=== PATIENT | male | born 1975 | race Caucasian/White ===

== ENCOUNTER 2017-12-27 12:00 | Emergency (ER) | payer BC ==
[2017-12-27 12:18] VITALS: BP 139/85; PULSE 103; RESP 20; TEMP 98.8
--- NOTE | 2017-12-27 13:38 | ED ---
Skin/Abscess/FB HPI - General Chief complaint: Skin/Abscess/Foreign Body Stated complaint: facial swelling Time Seen by Provider: 12/27/17 13:31 Source: patient, RN notes reviewed Mode of arrival: ambulatory Limitations: no limitations - History of Present Illness Initial comments: This is a 42-year-old male who presents to the emergency department with chief complaint of facial swelling. Patient states that he was outside all weekend. He states that he did develop a facial sunburn and blisters on his forehead yesterday. He states that he started to feel some tightness in his forehead. This morning he woke up and had swelling above his eyes. The swelling has progressively worsened with swelling below his eyes. Patient denies any pain with eye movement. He denies any pain in general. Denies fevers or chills, chest pain or shortness of breath, abdominal pain, nausea or vomiting, headache or dizziness. Denies vision changes. - Related Data Home Medications Medication Instructions Recorded Confirmed Aspirin [Adult Low Dose Aspirin EC] 81 mg PO DAILY 06/28/16 05/22/17 Losartan Potassium 100 mg PO DAILY 06/28/16 05/22/17 Previous Rx's Medication Instructions Recorded Amoxicillin/Potassium Clav 1 tab PO Q12HR #20 tab 05/22/17 [Augmentin 875-125 Tablet] Hydrocodone/Acetaminophen [[place] 1 tab PO Q6HR PRN #12 tab 05/22/17 5-325] predniSONE 20 mg PO BID #8 tab 12/27/17 Allergies Allergy/AdvReac Type Severity Reaction Status Date / Time No Known Allergies Allergy Verified 12/27/17 12:18 Review of Systems ROS Statement: Those systems with pertinent positive or pertinent negative responses have been documented in the HPI. ROS Other: All systems not noted in ROS Statement are negative. Past Medical History Past Medical History: Hypertension History of Any Multi-Drug Resistant Organisms: None Reported Past Surgical History: Orthopedic Surgery Past Psychological History: No Psychological Hx Reported Smoking Status: Current every day smoker Past Alcohol Use History: Occasional Past Drug Use History: None Reported General Exam - General Exam Comments Initial Comments: General: Awake and alert, well-developed; in no apparent distress. HEENT: Head atraumatic, normocephalic. Pupils are equal, round and reactive to light. Extraocular movements intact. No pain with eye movement. Bilateral periorbital and forehead significant soft tissue swelling. Oropharynx moist without erythema or exudate. Neck: Supple. Normal ROM. Cardiovascular: Regular rate and rhythm. No murmurs, rubs or gallops. Chest symmetrical. Respiratory: Lungs clear to auscultation bilaterally. No wheezes, rales or rhonchi. Normal respiratory effort with no use of accessory muscles. Musculoskeletal: Normal ROM, no tenderness bilateral upper and lower extremities. Ambulating normally. Skin: [place], warm and dry without rashes or lesions. Neurological: Alert and oriented x3. CN II-XII grossly intact. Speech is fluent and answers are appropriate. No focal neuro deficits. Psychiatric: Normal mood and affect. No overt signs of depression or anxiety noted. Limitations: no limitations Course Vital Signs 12/27/17 12:16 Temperature 98.8 F Pulse Rate 103 H Respiratory 20 Rate Blood Pressure 139/85 O2 Sat by Pulse 99 Oximetry Medical Decision Making - Medical Decision Making This is a 42-year-old male who presents to the emergency department with chief complaint of facial swelling. Patient was out in the sun all weekend. He developed a forehead and scalp sunburn with blister formation. This morning he awoke with forehead swelling that has slowly progressed to surrounding his eyes. Denies any pain with eye movement. Denies fevers. Vital signs are stable and he is in no acute distress. Patient will be started on oral steroids. He'll be discharged home at this time. Recommended aloe and NSAIDs. He is in agreement with plan and voices understanding. All questions answered. Disposition Clinical Impression: Facial swelling, Sunburn Disposition: HOME SELF-CARE Condition: Good Instructions: Sunburn (ED) Additional Instructions: Please take medications as prescribed. Please take ibuprofen 600 mg every 6 hours and apply aloe to your sunburn. Please follow up with primary care provider within 1-2 days. Return to emergency department if symptoms should worsen or any concerns arise. Prescriptions: predniSONE 20 mg PO BID #8 tab Is patient prescribed a controlled substance at d/c from ED?: No Referrals: Josias Linton DO [Primary Care Provider] - 1-2 days Time of Disposition: 13:45
[2017-12-27] MEDS ORDERED: predniSONE 50 MG TAB PO STA (13:41)
== END 2017-12-27 13:51 | disposition home or self-care (01) ==
LOC: EC 12:00
DX: L55.9 Sunburn, unspecified (principal); R22.0 Localized swelling, mass and lump, head; I10 Essential (primary) hypertension; F17.200 Nicotine dependence, unspecified, uncomplicated; Z79.82 Long term (current) use of aspirin; Z79.899 Other long term (current) drug therapy
CPT/HCPCS: 99283; J7512

== ENCOUNTER → 2020-05-12 | Outpatient (CLI) | payer BC ==
--- NOTE | 2020-05-12 22:54 | MR ---
EXAMINATION TYPE: MR shoulder LT wo con DATE OF EXAM: 05/12/2020 COMPARISON: NONE HISTORY: LT SHOULDER PAIN X2 MONTHS/ XRAYS AT DOCTOR'S OFFICE TECHNIQUE: Multiplanar, multisequence imaging of the left shoulder is performed without contrast. FINDINGS: Rotator Cuff: Distal supraspinatus and infraspinatus tendons are intact. Some increased signal distal infraspinatus tendon involving more anterior fibers with 6 mm AP diameter by 4 mm transverse diamete r articular surface tear sagittal image 7 and coronal image 14 noted. Subscapularis tendon intact. Acromioclavicular Joint: Moderate narrowing with mild capsular hypertrophy. No significant spurring. Distal acromion morphology unremarkable. Underlying fat plane maintained. Glenohumeral Joint: [id number] narrowing with small effusion. No significant spurring. Labrum: The labrum appears grossly intact given limitation of non-arthrogram study. Biceps Tendon: The long head of biceps is in normal location within bicipital groove. Bone marrow signal: Focal Subchondral cystic changes superolateral humeral head rotator cuff tendon a ttachment site. Other: No additional significant abnormality is appreciated. IMPRESSION: Focal articular surface involving the roughly anterior one third of the infraspinatus ten don. Mild to moderate degenerative changes as detailed above.
== END | disposition home or self-care (01) ==
LOC: RADMRIMAIN 16:27
PROVIDERS: ATTEND Orthopaedic Surgery
DX: M19.012 Primary osteoarthritis, left shoulder (principal)